=== PATIENT | female | born 1960 | race Caucasian/White ===

== ENCOUNTER → 2020-11-12 00:48 | Outpatient (CLI) | payer MEDICARE, SELFPAY ==
[2020-11-12 20:17] LABS: SARS-CoV-2 RNA PCR Negative
== END ==
PROVIDERS: PCP Family Medicine; Visit Provider Internal Medicine Critical Care Medicine
DX: R68.89 Other general symptoms and signs (principal); Z20.822 Contact with and (suspected) exposure to COVID-19
CPT/HCPCS: C9803; U0003; U0005

== ENCOUNTER 2020-11-14 09:26 | Outpatient (CLI) | payer MEDICARE, SELFPAY | END 2020-11-15 07:15 | disposition home or self-care (01) | LOC: ANHCSM 09:30 | PROVIDERS: PCP Family Medicine; Visit Provider Nurse Practitioner | DX: G47.30 Sleep apnea, unspecified (principal) | CPT/HCPCS: 99199 ==